=== PATIENT | male | born 1990 | race Caucasian/White ===

== ENCOUNTER 2017-09-06 15:15 | Emergency (ER) | payer MEDICAID, OTHER ==
[2017-09-06 15:28] VITALS: RESP 16; TEMP 98.5
[2017-09-06] MEDS ORDERED: Sodium Chloride 0.9% 1,000 ML IV STA (15:55)
--- NOTE | 2017-09-06 16:05 | ED PDOC ---
HPI: Abdomen Time Seen by Provider: 09/06/17 15:41 Chief Complaint (Nursing): Abdominal Pain Chief Complaint (Provider): Abdominal pain History Per: Patient History/Exam Limitations: no limitations Onset/Duration Of Symptoms: Days (x1) Outside of [place] travel?: Yes Other Location:: [place] Current Symptoms Are (Timing): Still Present Quality Of Discomfort: Cramping Associated Symptoms: Nausea, Other (tingling sensation to lips and b/l hands ). denies: Fever, Chills, Vomiting, Diarrhea Additional Complaint(s): Abraham Vega is a 26 year old male, with a past medical history gastritis, who presents to the emergency department complaining of intermittent episodes of crampy abdominal pain, and tingling sensation to lips and bilateral hands associated with nausea onset since yesterday. Patient reports similar symptoms in the past due to gastritis. Patient states he traveled to [place] over 3 months ago where he was diagnosed with salmonella and prescribed antibiotics with relief of symptoms. He denies any fever, chills, headache, chest pain, shortness of breath, vomit or diarrhea. No further medical complaints. No weakness, dysuria. PMD: None provided. Past Medical History Reviewed: Historical Data, Nursing Documentation, Vital Signs Vital Signs: Last Vital Signs Temp 98.5 F 09/06/17 15:27 Pulse 105 H 09/06/17 15:27 Resp 16 09/06/17 15:27 BP 123/90 09/06/17 15:27 Pulse Ox 97 09/06/17 16:47 - Medical History PMH: Anxiety, Gastritis - Surgical History Surgical History: Appendectomy (1999) - Family History Family History: States: Unknown Family Hx - Living Arrangements Living Arrangements: With Family - Social History Current smoker - smoking cessation education provided: No Alcohol: None Drugs: Denies - Immunization History Hx Tetanus Toxoid Vaccination: No Hx Influenza Vaccination: No Hx Pneumococcal Vaccination: No - Home Medications Home Medications: Ambulatory Orders Medication Instructions Recorded Famotidine [Pepcid] 20 mg PO BID #20 tab 11/06/14 Ondansetron ODT [Zofran ODT] 4 mg PO TID PRN #10 odt 11/06/14 - Allergies Allergies/Adverse Reactions: Allergies Allergy/AdvReac Type Severity Reaction Status Date / Time No Known Allergies Allergy Unverified 09/06/17 15:26 Review of Systems ROS Statement: Except As Marked, All Systems Reviewed And Found Negative Constitutional: Negative for: Fever, Chills Cardiovascular: Negative for: Chest Pain Respiratory: Negative for: Shortness of Breath Gastrointestinal: Positive for: Nausea, Abdominal Pain (crampy). Negative for: Vomiting, Diarrhea Neurological: Positive for: Other (tingling sensation to lips and b/l hands. ). Negative for: Headache Physical Exam - Reviewed Nursing Documentation Reviewed: Yes Vital Signs Reviewed: Yes - Physical Exam Appears: Positive for: Non-toxic, No Acute Distress Head Exam: Positive for: ATRAUMATIC, NORMAL INSPECTION, NORMOCEPHALIC Skin: Positive for: Normal Color, Warm, Dry Eye Exam: Positive for: Normal appearance, EOMI, PERRL ENT: Positive for: Normal ENT Inspection. Negative for: Nasal Congestion Neck: Positive for: Painless ROM, Supple Cardiovascular/Chest: Positive for: Regular Rate, Rhythm. Negative for: Murmur Respiratory: Positive for: Normal Breath Sounds. Negative for: Respiratory Distress Gastrointestinal/Abdominal: Positive for: Tenderness (mild epigastric), Other ( healing scar from appendectomy. ). Negative for: Guarding, Rebound Back: Positive for: Normal Inspection. Negative for: L CVA Tenderness, R CVA Tenderness, Vertebral Tenderness Extremity: Positive for: Normal ROM. 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 Negative for : Motor/Sensory Deficits, Aphasia, Facial Droop - Laboratory Results Result Diagrams: 09/06/17 16:30 09/06/17 16:30 Interpretation Of Abn Labs: 3.5 K; mild elevation of ast and alt - ECG O2 Sat by Pulse Oximetry: 97 (RA) Pulse Ox Interpretation: Normal - Progress ED Course And Treament: 1804 Pt. pain free. Tolerated PO. AAOx3. Fu with pcp and GI. Mild ast/alt elevation. Medical Decision Making Medical Decision Making: Initial Impression: Initial Plan: --CMP --Creatine Phosphokinase --Lipase --Urine dip --CBC w/ differential --Bentyl 10 mg PO --Sodium Chloride 1,000 ml IV 1,000 mls/hr --Zofran Inj 4mg IV --reevaluation Scribe Attestation: Documented by Benito Joyce, acting as a scribe for Leif Parrish MD Provider Scribe Attestation: All medical record entries made by the Scribe were at my direction and personally dictated by me. I have reviewed the chart and agree that the record accurately reflects my personal performance of the history, physical exam, medical decision making, and the department course for this patient. I have also personally directed, reviewed, and agree with the discharge instructions and disposition. Disposition - Clinical Impression Clinical Impression: Abdominal pain, Paresthesia, Hypokalemia, Elevated liver enzymes - Patient ED Disposition Is Patient to be Admitted: No Counseled Patient/Family Regarding: Studies Performed, Diagnosis, Need For Followup - Disposition Referrals: [facility] [Outside] - 09/07/17 Ok MENJIVAR,MD Lidia [Medical Doctor] - 09/07/17 Disposition: Routine/Home Disposition Time: 18:05 Condition: STABLE Additional Instructions: Return if not better in 3 days. See the specialist for your liver and symptoms. Instructions: Acute Abdominal Pain (ED), Hypokalemia (ED), Paresthesia (ED)
[2017-09-06 16:46] LABS: BASO % 0.7 % (0.0-2.0); EOS # 0.1 K/uL (0.0-0.7); EOS % 1.9 % (0.0-4.0); LYMPH # 1.7 K/uL (1.0-4.3); LYMPH % 25.1 % (20.0-40.0); MEAN CELL VOLUME 86.6 fl (80.0-94.0); MEAN CORPUSCULAR HEMOGLOBIN 28.9 pg (27.0-31.0); MEAN CORPUSCULAR HGB CONC 33.4 g/dL (33.0-37.0); MEAN PLATELET VOLUME 8.4 fl (7.2-11.7); MONO # 0.8 K/uL (0.0-0.8); MONO % 12.2 % (0.0-10.0); NEUT % 60.1 % (50.0-75.0); NRBC % 0.3 % (0.0-0.0); RBC 5.18 Mil/uL (4.40-5.90); RED CELL DISTRIBUTION WIDTH 13.3 % (11.5-14.5); WHITE BLOOD COUNT 6.6 K/uL (4.8-10.8)
[2017-09-06 16:51] LABS: ALB/GLOB RATIO 1.4 (1.0-2.1); ALBUMIN 4.3 g/dL (3.5-5.0); ALT/SGPT 271 U/L (21-72); AST/SGOT 121 U/L (17-59); BLOOD UREA NITROGEN 17 mg/dl (9-20); CALCIUM 9.4 mg/dL (8.4-10.2); GFR AFRICAN-AMERICAN > 60; GFR NON-AFRICAN AMERICAN > 60; LIPASE 39 U/L (23-300)
[2017-09-06] MEDS ORDERED: Potassium Chloride 20 mEq ER Tab PO ONE ×2 (17:55→18:18)
[2017-09-06 18:23] VITALS: BP 116/59; PULSE 78; O2SAT 98
== END 2017-09-06 18:32 | disposition home or self-care (01) ==
LOC: H.ER 15:15
DX: R10.9 Unspecified abdominal pain (principal); R20.2 Paresthesia of skin; E87.6 Hypokalemia; R94.5 Abnormal results of liver function studies; F41.9 Anxiety disorder, unspecified
CPT/HCPCS: 80053; 82550; 83690; 85025; 96360; 99283; J2405; J7040